=== PATIENT | male | born 1960 | race Asian ===

== ENCOUNTER 2018-04-13 06:36 | Day surgery (SDC) | payer OTHER ==
[2018-04-13] MEDS ORDERED: PROPOFOL 40 ML (08:24)
== END 2018-04-13 12:09 | disposition home or self-care (01) ==
LOC: GIL 06:36
DX: Z12.11 Encounter for screening for malignant neoplasm of colon (principal); D12.5 Benign neoplasm of sigmoid colon; K62.1 Rectal polyp; K64.8 Other hemorrhoids; I25.10 Atherosclerotic heart disease of native coronary artery without angina pectoris; E11.9 Type 2 diabetes mellitus without complications; I10 Essential (primary) hypertension; I25.2 Old myocardial infarction
CPT/HCPCS: 45380; 82962; 88305